=== PATIENT | male | born 1990 | race American Indian/Alaskan Native ===

== ENCOUNTER 2017-12-30 11:49 | Emergency (ER) | payer OTHER ==
[2017-12-30 12:02] VITALS: BP 132/79
--- NOTE | 2017-12-30 12:51 | Emergency Department Report ---
HPI - General Chief Complaint: Extremity Injury, Lower Time Seen by Provider: 12/30/17 12:49 - HPI HPI: 28-year-old Citizen Of [place] male presents to the emergency department with complaint of pain along his right hamstring after he was playing some sports yesterday with his family and he felt a pop. He says that he has injured it in the past but never got it checked out at that time. He has trouble with extension of the leg and therefore with ambulation. He did not take anything for her symptoms prior to presentation. No past medical history. No primary care physician. ED Past Medical Hx - Past Medical History Hx Kidney Stones: Yes - Social History Smoking Status: Never Smoker Substance Use Type: None - Medications Home Medications: Home Medications Medication Instructions Recorded Confirmed Last Taken Type Acetaminophen/Codeine 1 tab PO Q6H PRN #12 tab 06/23/14 Unknown Rx [Acetaminophen-Codeine #3 TAB] Ibuprofen [Motrin 800 MG tab] 800 mg PO Q8H PRN #30 tablet 06/23/14 Unknown Rx Neomy/Polymyx B/Hc (Otic) Soln 4 drops OT Q8H #1 bottle 06/23/14 Unknown Rx [Cortisporin (Otic) Soln] Cetirizine HCl [ZyrTEC] 10 mg PO DAILY #30 capsule 04/08/16 Unknown Rx Ciprofloxacin HCl [Ciprofloxacin 500 mg PO Q12HR #14 tab 04/08/16 Unknown Rx TAB] Ibuprofen [Motrin 800 MG tab] 800 mg PO Q8HR PRN #25 tablet 04/08/16 Unknown Rx Neomycin/Polymyxin B Sulf/Hc 4 drop AU TID #10 drops.susp 04/08/16 Unknown Rx [NEOMY/POLY/HC 3.5mg/83608jreez/10mg OTIC] HYDROcodone/APAP 5-325 [[place] 1 each PO Q6HR PRN #10 tablet 12/30/17 Unknown Rx 5/325] ED Review of Systems ROS: Stated complaint: RIGHT LEG PAIN Other details as noted in HPI Comment: All other systems reviewed and negative Constitutional: denies: chills, fever Eyes: denies: eye pain, eye discharge, vision change ENT: denies: ear pain, throat pain Respiratory: denies: cough, shortness of breath, wheezing Cardiovascular: denies: chest pain, palpitations Gastrointestinal: denies: abdominal pain, nausea, diarrhea Genitourinary: denies: urgency, dysuria Musculoskeletal: arthralgia, myalgia Skin: denies: rash, lesions Neurological: denies: headache, weakness, paresthesias Physical Exam - Physical Exam Vital Signs: Vital Signs 12/30/17 12:00 Temperature 98.6 F Pulse Rate 77 Respiratory 20 Rate Blood Pressure 132/79 O2 Sat by Pulse 98 Oximetry Physical Exam: GENERAL: The patient is well-developed well-nourished. HENT: Normocephalic. Atraumatic. Patient has moist mucous membranes. EYES: Extraocular motions are intact. NECK: Supple. Trachea is midline. CHEST/LUNGS: Clear to auscultation. There is no respiratory distress noted. HEART/CARDIOVASCULAR: Regular. There is no tachycardia. There is no murmur. ABDOMEN: There is no abdominal distention. SKIN: Skin is warm and dry. NEURO: The patient is awake, alert, and oriented. The patient is cooperative. The patient has no focal neurologic deficits. The patient has normal speech. MUSCULOSKELETAL: There is tenderness to palpation along the length of the right hamstring but no obvious deformity. Decreased flexion of the right lower extremity at the hip and knee secondary to pain in the hamstring. ED Course Vital Signs 12/30/17 12:00 Temperature 98.6 F Pulse Rate 77 Respiratory 20 Rate Blood Pressure 132/79 O2 Sat by Pulse 98 Oximetry ED Medical Decision Making - Radiology Data Radiology results: image reviewed interpreted by me: X-ray of the right femur does not show any fracture, dislocation or any acute process. - Medical Decision Making Patient says that he felt a pop in his hamstring while playing sports yesterday and now has pain along the hamstring and difficulty with ambulation and extension of that right lower extremity. X-ray of the femur does not show any signs of any fracture, dislocation or any other acute process. The patient was placed on crutches so that he can be nonweightbearing to the affected right lower extremity. He was given some pain medication and a referral for orthopedist. He understands he may need an MRI in the near future if his symptoms continue. He will return to the ER with any worsening of his symptoms or any acute distress. - Differential Diagnosis muscle sprain, muscle tear, fracture, dislocation Critical Care Time: No Critical care attestation.: If time is entered above; I have spent that time in minutes in the direct care of this critically ill patient, excluding procedure time. ED Disposition Clinical Impression: Hamstring injury Qualifiers: Encounter type: initial encounter Laterality: right Qualified Code(s): S76.301A - Unspecified injury of muscle, fascia and tendon of the posterior muscle group at thigh level, right thigh, initial encounter Disposition: TO HOME OR SELFCARE Is pt being admited?: No Condition: Stable Instructions: Muscle Strain (ED), Arthralgia (ED) Additional Instructions: Please follow up with an orthopedist in the next few days. I have given you a referral for 2 different orthopedic groups in the area. Return to the emergency Department with any worsening of your symptoms or any acute distress. You have been prescribed a medication that is sedating and therefore should not be taken prior to driving, working, and responsible for children and in no way should be mixed with alcohol of any quantity. Prescriptions: HYDROcodone/APAP 5-325 [[place] 5/325] 1 each PO Q6HR PRN #10 tablet PRN Reason: Pain Referrals: PRIMO ABBOTT MD [Staff Physician] - 3-5 Days [facility] [Provider Group] - 3-5 Days Time of Disposition: 14:09
--- NOTE | 2017-12-30 14:26 | XRay Report ---
FINAL REPORT PROCEDURE: XR FEMUR 2+V RT TECHNIQUE: Right femur, AP and lateral views HISTORY: right posterior leg / hamstring pain COMPARISON: No prior studies are available for comparison. FINDINGS: No acute fracture or dislocation. No focal osseous lesions. IMPRESSION: No acute osseous abnormality is identified
== END 2017-12-30 14:39 | disposition home or self-care (01) ==
LOC: ED 11:49
DX: S76.301A Unspecified injury of muscle, fascia and tendon of the posterior muscle group at thigh level, right thigh, initial encounter (principal); X58.XXXA Exposure to other specified factors, initial encounter; Y93.79 Activity, other specified sports and athletics; Y99.8 Other external cause status; Y92.89 Other specified places as the place of occurrence of the external cause
CPT/HCPCS: 99283

== ENCOUNTER 2018-07-05 18:57 | Emergency (ER) | payer OTHER ==
[2018-07-05 20:00] VITALS: BP 129/77
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
[2018-07-05] MEDS ORDERED: DECADRON IM STA (21:28)
[2018-07-05] MEDS ORDERED: NORCO 5/325 PO ONE (21:34)
[2018-07-05] MEDS ORDERED: TORADOL IM ONE (21:34)
[2018-07-05] MEDS ORDERED: FLEXERIL PO ONE (21:34)
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
== END 2018-07-05 23:40 | disposition home or self-care (01) ==
LOC: ED 18:57
DX: S39.012A Strain of muscle, fascia and tendon of lower back, initial encounter (principal); S09.90XA Unspecified injury of head, initial encounter; G44.319 Acute post-traumatic headache, not intractable; F17.200 Nicotine dependence, unspecified, uncomplicated; V89.2XXA Person injured in unspecified motor-vehicle accident, traffic, initial encounter; Y93.89 Activity, other specified; Y92.488 Other paved roadways as the place of occurrence of the external cause; Y99.8 Other external cause status
CPT/HCPCS: 70450; 72131; 96372; 99283; J1885

== ENCOUNTER 2019-05-12 11:42 | Emergency (ER) | payer SELFPAY ==
[2019-05-12 13:26] VITALS: BP 125/84
--- NOTE | 2019-05-12 13:31 | Emergency Department Report ---
Chief Complaint: Upper Respiratory Infection Stated Complaint: FLU SX Time Seen by Provider: 05/12/19 13:27 - HPI History of Present Illness: healthy looking 29 y o male presents with cc of URI sx x 2 days tking otc meds for sx and feeling ok, has not been able to go to work in 2 days states mild fever and body aches but resolves with meds - ROS Review of Systems: as noted in HPI - Exam Vital Signs: Vital Signs 05/12/19 13:24 Temperature 99.9 F H Pulse Rate 86 Respiratory 20 Rate Blood Pressure 125/84 [Right] O2 Sat by Pulse 99 Oximetry Physical Exam: Gen: aao x 3, in no acute or respiratory distress Lung:CTAB, RRR, no wheezing noted MSE screening note: Focused history and physical exam performed. Due to findings the following was ordered: ED Medical Decision Making - Medical Decision Making presents with flu like symptoms symptoms reliened with ,meds ED Disposition for MSE Clinical Impression: Upper respiratory infection Disposition: Z- MED SCREENING EXAM-LEFT Is pt being admited?: No Does the pt Need Aspirin: No Condition: Stable Instructions: Viral Syndrome (ED) Additional Instructions: follow up as reffered Return to ED if new or worsening symptoms Referrals: [facility] [Outside] - 3-5 Days [facility] [Outside] - 3-5 Days Forms: Work/School Release Form(ED) Time of Disposition: 13:30
== END 2019-05-12 13:45 | disposition left against medical advice (07) ==
LOC: ED 11:42
DX: J06.9 Acute upper respiratory infection, unspecified (principal)
CPT/HCPCS: 99281

== ENCOUNTER 2021-05-15 20:48 | Emergency (ER) | payer SELFPAY ==
--- NOTE | 2021-05-16 00:54 | Emergency Department Report ---
ED General Adult HPI - General Chief complaint: Skin/Abscess/Foreign Body Stated complaint: ABSCESS Time Seen by Provider: 05/16/21 00:48 Source: patient Mode of arrival: Ambulatory Limitations: No Limitations - History of Present Illness Initial comments: 31-year-old -[place] male with no significant past medical history department complaining of 3 to 4-day history of progressive worsening right facial swelling and pain which is worse with palpation and chewing. Reports no no tinnitus, no fever, chills, sweats. No known epistaxis. No odynophagia or dysphagia. No neck pain with movement or palpation. - Related Data Previous Rx's Medication Instructions Recorded Last Taken Type Acetaminophen/Codeine 1 tab PO Q6H PRN #12 tab 06/23/14 Unknown Rx [Acetaminophen-Codeine #3 TAB] Ibuprofen [Motrin 800 MG tab] 800 mg PO Q8H PRN #30 tablet 06/23/14 Unknown Rx Neomy/Polymyx B/Hc (Otic) Soln 4 drops OT Q8H #1 bottle 06/23/14 Unknown Rx [Cortisporin (Otic) Soln] Cetirizine HCl [ZyrTEC] 10 mg PO DAILY #30 capsule 04/08/16 Unknown Rx Ciprofloxacin HCl [Ciprofloxacin 500 mg PO Q12HR #14 tab 04/08/16 Unknown Rx TAB] Ibuprofen [Motrin 800 MG tab] 800 mg PO Q8HR PRN #25 tablet 04/08/16 Unknown Rx Neomycin/Polymyxin B Sulf/Hc 4 drop AU TID #10 drops.susp 04/08/16 Unknown Rx [NEOMY/POLY/HC 3.5mg/83589chkhl/10mg OTIC] HYDROcodone/APAP 5-325 [[place] 1 each PO Q6HR PRN #10 tablet 12/30/17 Unknown Rx 5/325] Cyclobenzaprine [Flexeril 10mg] 10 mg PO Q12H PRN #14 tablet 07/05/18 Unknown Rx Ibuprofen [Motrin] 800 mg PO Q8HR PRN #12 tablet 07/05/18 Unknown Rx Amoxicillin/Potassium Clav 1 each PO BID #20 tablet 05/16/21 Unknown Rx [Augmentin 875-125 Tablet] Ketorolac [Toradol] 10 mg PO Q6H PRN #15 tablet 05/16/21 Unknown Rx Allergies Allergy/AdvReac Type Severity Reaction Status Date / Time No Known Allergies Allergy Verified 05/12/19 13:26 ED Review of Systems ROS: Stated complaint: ABSCESS Other details as noted in HPI Comment: All other systems reviewed and negative ED Past Medical Hx - Past Medical History Hx Kidney Stones: Yes - Surgical History Past Surgical History?: Yes Additional Surgical History: right knee - Social History Smoking Status: Never Smoker Substance Use Type: Alcohol - Medications Home Medications: Home Medications Medication Instructions Recorded Confirmed Last Taken Type Acetaminophen/Codeine 1 tab PO Q6H PRN #12 tab 06/23/14 Unknown Rx [Acetaminophen-Codeine #3 TAB] Ibuprofen [Motrin 800 MG tab] 800 mg PO Q8H PRN #30 tablet 06/23/14 Unknown Rx Neomy/Polymyx B/Hc (Otic) Soln 4 drops OT Q8H #1 bottle 06/23/14 Unknown Rx [Cortisporin (Otic) Soln] Cetirizine HCl [ZyrTEC] 10 mg PO DAILY #30 capsule 04/08/16 Unknown Rx Ciprofloxacin HCl [Ciprofloxacin 500 mg PO Q12HR #14 tab 04/08/16 Unknown Rx TAB] Ibuprofen [Motrin 800 MG tab] 800 mg PO Q8HR PRN #25 tablet 04/08/16 Unknown Rx Neomycin/Polymyxin B Sulf/Hc 4 drop AU TID #10 drops.susp 04/08/16 Unknown Rx [NEOMY/POLY/HC 3.5mg/[id number]/10mg OTIC] HYDROcodone/APAP 5-325 [[place] 1 each PO Q6HR PRN #10 tablet 12/30/17 Unknown Rx 5/325] Cyclobenzaprine [Flexeril 10mg] 10 mg PO Q12H PRN #14 tablet 07/05/18 Unknown Rx Ibuprofen [Motrin] 800 mg PO Q8HR PRN #12 tablet 07/05/18 Unknown Rx Amoxicillin/Potassium Clav 1 each PO BID #20 tablet 05/16/21 Unknown Rx [Augmentin 875-125 Tablet] Ketorolac [Toradol] 10 mg PO Q6H PRN #15 tablet 05/16/21 Unknown Rx ED Physical Exam - General Limitations: No Limitations General appearance: alert, in no apparent distress - Head Head exam: Present: atraumatic, normocephalic - Eye Eye exam: Present: normal appearance - ENT ENT exam: Present: mucous membranes moist, other (Swelling tenderness to the right maxillary region with palpation with sensation of either cystic or early abscess formation present. There is some discomfort when palpated to the upper intraoral region. Airway patent tongue uvula midline no lymphadenopathy is appreciated. ) - Neck Neck exam: Present: normal inspection - Respiratory Respiratory exam: Present: normal lung sounds bilaterally. Absent: respiratory distress - Cardiovascular Cardiovascular Exam: Present: regular rate, normal rhythm. Absent: systolic murmur, diastolic murmur, rubs, gallop - GI/Abdominal GI/Abdominal exam: Present: soft, normal bowel sounds - Rectal Rectal exam: Present: deferred - Extremities Exam Extremities exam: Present: normal inspection - Back Exam Back exam: Present: normal inspection - Neurological Exam Neurological exam: Present: alert, oriented X3 - Psychiatric Psychiatric exam: Present: normal affect, normal mood - Skin Skin exam: Present: warm, dry, intact, normal color. Absent: rash ED Course Vital Signs 05/15/21 05/15/21 22:58 22:59 Temperature 98.7 F Pulse Rate 70 Blood Pressure 128/79 O2 Sat by Pulse 100 Oximetry Critical care attestation.: If time is entered above; I have spent that time in minutes in the direct care of this critically ill patient, excluding procedure time. ED Disposition Clinical Impression: Facial swelling, Maxillary pain Disposition: 01 HOME / SELF CARE / HOMELESS Is pt being admited?: No Does the pt Need Aspirin: No Condition: Stable Instructions: Acute Pain, Adult, Sinusitis, Adult Referrals: [facility] [Provider Group] - 3-5 Days
[2021-05-16 02:21] VITALS: BP 134/86
== END 2021-05-16 02:22 | disposition home or self-care (01) ==
LOC: ED 20:48
DX: R22.0 Localized swelling, mass and lump, head (principal); R68.84 Jaw pain; Z87.442 Personal history of urinary calculi; Z72.89 Other problems related to lifestyle; Z79.899 Other long term (current) drug therapy; Z98.890 Other specified postprocedural states
CPT/HCPCS: 99282